=== PATIENT | male | born 1945 | race Caucasian/White ===

== ENCOUNTER 2017-06-20 15:36 | Emergency (ER) | payer MEDICARE ==
[~2017-06-20] VITALS: Ht 175.3 cm; Wt 93.2 kg
[~2017-06-20 15:36] MED LIST: ANTIVERT25 MG OR; BL ADULT ASA81 MG OR; FIBERCON625 MG OR; LANTUS100 MG/ML SC; LIPITOR40 MG OR; MEDDOSEPAK OR; MULTI VITAMN OR; REGLAN10 MG OR
[2017-06-20] MEDS ORDERED: ALLOPURINOL100 MG PO (16:22)
[2017-06-20] MEDS ORDERED: METOPROLOL TART50 MG PO (16:24)
[2017-06-20] MEDS ORDERED: BUMETANIDE1 MG PO (16:26)
[2017-06-20] MEDS ORDERED: AMLODIPINE5 MG PO (16:26)
[2017-06-20] MEDS ORDERED: GLIPIZIDE5 MG PO (16:27)
[2017-06-20] MEDS ORDERED: JANUVIA50 MG PO (16:27)
[2017-06-20] MEDS ORDERED: NOVOLOG100 UNIT/M (16:28)
[2017-06-20 18:03] LABS: URINE BILIRUBIN - DIPSTICK NEGATIVE (NEGATIVE); URINE BLOOD DIPSTICK LARGE (NEGATIVE); URINE COLOR YELLOW; URINE GLUCOSE - DIPSTICK 250 mg/dL (NEGATIVE); URINE KETONE NEGATIVE (NEGATIVE); URINE NITRITE - DIPSTICK NEGATIVE (Negative); URINE PROTEIN - DIPSTICK 100 mg/dL (NEG-TRACE); URINE SPECIFIC GRAVITY 1.025; URINE UROBILINOGEN - DIPSTICK 0.2 E.U./dL (0.2)
[2017-06-20 18:08] LABS: HEMATOCRIT 36.6 % (39.0-50.0); HEMOGLOBIN 12.1 g/dl (14.0-18.0); IMMATURE GRANULOCYTES 1.4 % (0.0-1.0); MEAN CELL VOLUME 92.9 fL CALC (80.0-100.0); MEAN CORPUSCULAR HGB 30.7 pG CALC (26.0-32.0); MEAN CORPUSCULAR HGB CONC 33.1 g/L CALC (32.0-36.0); NEUT# 14.58 thou/uL (1.82-7.42); RED BLOOD COUNT 3.94 mill/uL (4.70-6.10); RED CELL DISTRI WIDTH 13.2 % (11.5-15.5)
[2017-06-20 18:18] LABS: URINE LEUK ESTERASE SMALL (NEGATIVE)
[2017-06-20 18:19] LABS: URINE CLARITY TURBID
[2017-06-20 18:28] LABS: ALBUMIN 3.6 g/dL (3.2-5.0); BILIRUBIN, TOTAL 0.4 mg/dL (0.0-1.4); CALCIUM 9.5 mg/dL (8.4-10.2); CREATININE 3.2 mg/dL (0.7-1.3); POTASSIUM 4.7 mmol/l (3.5-5.1); TOTAL PROTEIN 6.6 g/dL (6.3-8.2)
[2017-06-20 18:44] LABS: URINE BACTERIA FEW hpf; URINE RBC TNTC RBC/hpf (0-5); URINE SQUAMOUS EPITHELIAL CELL FEW EPI/hpf (0-FEW)
[2017-06-20] MEDS ORDERED: ANTIVERT PO (18:54)
[2017-06-20] MEDS ORDERED: MACROBID100 MG PO (18:54)
[2017-06-20] MEDS ORDERED: ZOFRAN4 MG/TAB PO (18:54)
[2017-06-20 19:46] VITALS: BP 158/73
== END 2017-06-20 19:43 | disposition home or self-care (01) ==
LOC: ED 15:36
PROVIDERS: Emergency Medicine
DX: H61.23 Impacted cerumen, bilateral (principal); N39.0 Urinary tract infection, site not specified; B95.2 Enterococcus as the cause of diseases classified elsewhere; I10 Essential (primary) hypertension; E11.9 Type 2 diabetes mellitus without complications; R42 Dizziness and giddiness

== ENCOUNTER 2018-01-06 11:18 | Emergency (ER) | payer MEDICARE ==
[~2018-01-06] VITALS: Ht 175.3 cm; Wt 90.0 kg
[~2018-01-06 11:18] MED LIST changes: +ALLOPURINOL100 MG PO; +AMLODIPINE5 MG PO; +ANTIVERT PO; +BUMETANIDE1 MG PO; +GLIPIZIDE5 MG PO; +JANUVIA50 MG PO; +MACROBID100 MG PO; +METOPROLOL TART50 MG PO; +NOVOLOG100 UNIT/M; +ZOFRAN4 MG/TAB PO
[2018-01-06 15:25] VITALS: BP 189/88
== END 2018-01-06 15:25 | disposition home or self-care (01) ==
LOC: ED 11:18
DX: S70.02XA Contusion of left hip, initial encounter (principal); I12.0 Hypertensive chronic kidney disease with stage 5 chronic kidney disease or end stage renal disease; E11.22 Type 2 diabetes mellitus with diabetic chronic kidney disease; N18.6 End stage renal disease; W19.XXXA Unspecified fall, initial encounter; Y93.K1 Activity, walking an animal; Y92.009 Unspecified place in unspecified non-institutional (private) residence as the place of occurrence of the external cause; Z99.2 Dependence on renal dialysis; Z85.528 Personal history of other malignant neoplasm of kidney; Z90.5 Acquired absence of kidney; Z85.01 Personal history of malignant neoplasm of esophagus

== ENCOUNTER 2018-02-19 12:59 | Emergency (ER) | payer MEDICARE ==
[~2018-02-19] VITALS: Ht 175.3 cm; Wt 90.9 kg
[~2018-02-19 12:59] MED LIST changes: -FIBERCON625 MG OR; +FIBERCON625 MG PO
[2018-02-19 13:29] LABS: HEMOGLOBIN 13.4 g/dl (14.0-18.0); IMMATURE GRANULOCYTES 0.9 % (0.0-1.0); MEAN CELL VOLUME 93.1 fL CALC (80.0-100.0); MEAN CORPUSCULAR HGB 29.7 pG CALC (26.0-32.0); MEAN CORPUSCULAR HGB CONC 31.9 g/L CALC (32.0-36.0); NEUT# 10.25 thou/uL (1.82-7.42); RED BLOOD COUNT 4.51 mill/uL (4.70-6.10); RED CELL DISTRI WIDTH 15.7 % (11.5-15.5)
[2018-02-19 13:46] LABS: ALBUMIN 4.1 g/dL (3.2-5.0); BILIRUBIN, TOTAL 0.4 mg/dL (0.0-1.4); TOTAL PROTEIN 7.7 g/dL (6.3-8.2)
[2018-02-19 13:49] LABS: CREATININE 5.4 mg/dL (0.7-1.3); POTASSIUM 5.3 mmol/l (3.5-5.1)
[2018-02-19] MEDS ORDERED: KP VITAMIN PO (13:55)
[2018-02-19] MEDS ORDERED: PEPCID20 MG PO (13:57)
[2018-02-19] MEDS ORDERED: LEVEMIR FL100 UNIT/M SC (14:02)
[2018-02-19] MEDS ORDERED: METOPROL TAR25 MG PO (14:03)
[2018-02-19] MEDS ORDERED: FISH OIL1000 MG PO (14:10)
[2018-02-19 14:15] LABS: URINE BILIRUBIN - DIPSTICK NEGATIVE (NEGATIVE); URINE BLOOD DIPSTICK TRACE-INTACT (NEGATIVE); URINE CLARITY SL CLOUDY; URINE COLOR YELLOW; URINE GLUCOSE - DIPSTICK >=1000 mg/dL (NEGATIVE); URINE KETONE NEGATIVE (NEGATIVE); URINE LEUK ESTERASE NEGATIVE (NEGATIVE); URINE NITRITE - DIPSTICK NEGATIVE (Negative); URINE PROTEIN - DIPSTICK >=300 mg/dL (NEG-TRACE); URINE SPECIFIC GRAVITY 1.025; URINE UROBILINOGEN - DIPSTICK 0.2 E.U./dL (0.2)
[2018-02-19 14:20] LABS: URINE AMORPH SEDIMENT MANY hpf (NONE-FER); URINE RBC 0-2 RBC/hpf (0-5); URINE WBC 0-2 WBC/hpf (0-5)
[2018-02-19] MEDS ORDERED: RENAGEL 800MG800 MG PO (14:32)
[2018-02-19 15:50] VITALS: BP 181/95
== END 2018-02-19 15:59 ==
LOC: ED 12:59
PROVIDERS: Emergency Medicine
DX: I12.0 Hypertensive chronic kidney disease with stage 5 chronic kidney disease or end stage renal disease (principal); E11.22 Type 2 diabetes mellitus with diabetic chronic kidney disease; N18.6 End stage renal disease; R41.82 Altered mental status, unspecified; Z99.2 Dependence on renal dialysis; Z85.528 Personal history of other malignant neoplasm of kidney; Z85.01 Personal history of malignant neoplasm of esophagus